=== PATIENT | male | born 1985 | race Caucasian/White ===

== ENCOUNTER 2018-10-05 09:20 | Outpatient (CLI) | payer BC ==
--- NOTE | 2018-10-05 10:06 | ULT ---
ULTRASOUND ABDOMEN: HISTORY: Abdominal pain FINDINGS: The liver, gallbladder, kidneys and visualized portions of the pancreas, aorta and IVC appear normal. The common duct measures 3 mm in diameter. No free fluid is seen. The spleen is enlarged measuring 14.7 cm in length. IMPRESSION: Splenomegaly
== END 2018-10-05 09:21 | disposition home or self-care (01) ==
LOC: BICULT 09:20
PROVIDERS: ATTEND Internal Medicine
DX: R10.10 Upper abdominal pain, unspecified (principal); R16.1 Splenomegaly, not elsewhere classified
CPT/HCPCS: 76700